=== PATIENT | female | born 1950 | race Caucasian/White ===

== ENCOUNTER 2020-08-28 07:30 | Emergency (ER) | payer MEDICARE, OTHER ==
[~2020-08-28] VITALS: Ht 162.6 cm; Wt 59.0 kg
[2020-08-28 08:14] LABS: BASOPHILS ABSOLUTE AUTO 0.03 K/mm3 (0.00-0.23); BASOPHILS PERCENT AUTO 0 % (0-2); EOSINOPHILS ABSOLUTE AUTO 0.02 K/mm3 (0.00-0.68); EOSINOPHILS PERCENT AUTO 0 % (0-6); Hematocrit 34.1 % (33.0-51.0); Hemoglobin 11.4 g/dL (11.5-16.0); IMMATURE GRAN ABSOLUTE AUTO 0.02 K/mm3 (0.00-0.10); IMMATURE GRAN PERCENT AUTO 0 % (0-1); LYMPHOCYTES PERCENT AUTO 10 % (21-46); MONOCYTES ABSOLUTE AUTO 0.41 K/mm3 (0.16-1.47); MONOCYTES PERCENT AUTO 6 % (4-13); Mean Corpuscular HGB 30.9 pg (26.0-34.0); Mean Corpuscular HGB Conc 33.4 g/dL (31.5-36.5); Mean Corpuscular Volume 92 fL (80-100); Mean Platelet Volume 8.7 fL (9.1-12.4); NEUTROPHILS ABSOLUTE AUTO 6.14 K/mm3 (1.96-9.15); NEUTROPHILS PERCENT AUTO 84 % (41-73); Platelet Count 449 K/mm3 (150-400); RDW Coefficient Variation 13.8 % (11.7-14.2); RDW Standard Deviation 46.9 fL (35.1-46.3); Red Blood Cell Count 3.69 M/mm3 (3.80-5.20); White Blood Cell Count 7.32 K/mm3 (4.00-11.30)
[2020-08-28 08:42] LABS: Alanine Aminotransfer (ALT/SGP 16 U/L (12-78); Albumin, Blood 2.6 g/dL (3.4-5.0); Albumin/Globulin Ratio 0.7 (0.8-1.8); Alk Phos 75 U/L (50-136); Anion Gap 10 mmol/L (6-16); Aspartate Aminotrans (AST/SGOT 14 U/L (12-37); Bilirubin, Total 0.5 mg/dL (0.1-1.0); Blood Urea Nitrogen 10 mg/dL (8-24); Bun/Creatinine Ratio 19.2 (12.0-20.0); CO2, Blood 24 mmol/L (21-32); Calcium, Blood 8.3 mg/dL (8.5-10.1); Chloride, Blood 97 mmol/L (98-108); Creatinine, Blood 0.52 mg/dL (0.40-1.00); Free Thyroxine 1.13 ng/dL (0.70-1.60); Globulin, Blood 3.7 g/dL (2.2-4.0); Glomerular Filtration Rate >60 (60-); Glucose, Blood 96 mg/dL (70-99); Potassium, Blood 3.5 mmol/L (3.5-5.5); Sodium, Blood 131 mmol/L (136-145); Total Protein, Blood 6.3 g/dL (6.4-8.2)
[2020-08-28 12:07] LABS: International Normalized Ratio 1.06; Prothrombin Time Results 11.4 Sec (9.7-11.5)
[2020-08-29 07:10] LABS: HBSAG SCREEN Negative (Negative); HEP B CORE AB, TOT Negative (Negative); HEP C VIRUS AB <0.1 (0.0-0.9)
[2020-08-29 08:10] LABS: HBSAG SCREEN Negative (Negative); HEP A AB, IGM Negative (Negative); HEP B CORE AB, IGM Negative (Negative); HEP C VIRUS AB <0.1 (0.0-0.9)
== END 2020-08-28 11:03 | disposition home or self-care (01) ==
LOC: ER 07:30
PROVIDERS: Emergency Medicine
DX: R18.8 Other ascites (principal)
CPT/HCPCS: 74177; 80053; 80074; 83690; 84439; 84443; 85025; 85610; 85730; 86317; 86704; 86708; 86803; 87340; 99284-25; Q9967

== ENCOUNTER 2021-03-04 09:57 | Emergency (ER) | payer MEDICARE ==
[~2021-03-04] VITALS: Ht 162.6 cm; Wt 61.7 kg
[2021-03-04] MEDS ORDERED: CAPECITABINE150 MG PO (11:28)
[2021-03-04] MEDS ORDERED: METFORMIN HCL500 M2 PO (11:28)
[2021-03-04] MEDS ORDERED: TOBRAMYCIN5 ML BOTHEYES (11:28)
== END 2021-03-04 13:29 | disposition home or self-care (01) ==
LOC: ER 09:57
DX: R18.8 Other ascites (principal); Z87.19 Personal history of other diseases of the digestive system
CPT/HCPCS: 36415; 49083; 99284-25

== ENCOUNTER 2021-03-08 14:32 | Emergency (ER) | payer MEDICARE ==
[~2021-03-08] VITALS: Ht 162.6 cm; Wt 61.2 kg
[~2021-03-08 14:32] MED LIST: CAPECITABINE150 MG PO; METFORMIN HCL500 M2 PO; TOBRAMYCIN5 ML BOTHEYES
--- NOTE | 2021-03-10 18:31 | NUR ---
pt called to discuss pleurex care. pt refused hospice care becasue she thought they would force medications on her. Review of what hospice does and how they can help. pt willing to have them come see her.Will update oncology tomorrow and get her an intake.
== END 2021-03-08 19:26 | disposition home or self-care (01) ==
LOC: ER 14:32
DX: J90 Pleural effusion, not elsewhere classified (principal); Z85.028 Personal history of other malignant neoplasm of stomach
CPT/HCPCS: 71046; 76705; 99285-25

== ENCOUNTER 2021-04-15 06:08 | Day surgery (SDC) | payer MEDICARE ==
[~2021-04-15] VITALS: Ht 162.6 cm; Wt 68.4 kg
[~2021-04-15 06:08] MED LIST changes: +SULFAMETHOXAZO1 EAC1
--- NOTE | 2021-04-15 06:52 | NUR ---
History, Chart, Medications and Allergies reviewed before start of procedure. LS WITH CRACKLES IN THE BASES GREATER ON R SIDE. PT WITH PLEURX CATH DRESSING INTACT TO LUQ ABD. Patient confirms NPO status and agrees with scheduled surgery. Pre-Op teaching done. Pt verbalizes understanding. Patient States Post-Procedure ride home has been arranged. Patient reports completing Chlorhexadine BATH X2 prior to admission to hospital. PT STATES SHE DOESN'T SHOWER BUT BATHS DUE TO THE PLEURX CATH. PT HAS HOSPICE SERVICES AT FOR AFTERCARE.
--- NOTE | 2021-04-15 08:00 | NUR ---
04/15/21 0800 Irene Patterson PLEURX CATHETER PLACED. 3L OF FLUID DRAINED FROM ABDOMEN.
== END 2021-04-15 09:11 | disposition home or self-care (01) ==
LOC: ORSCMMR 06:08 → ORD 07:30 → ORSCMMR 07:30
PROVIDERS: Surgery
PROC: 0WHG33Z Insertion of Infusion Device into Peritoneal Cavity, Percutaneous Approach (ICD-10-PCS; principal; 2021-04-15 07:30)
DX: C48.2 Malignant neoplasm of peritoneum, unspecified (principal); J91.0 Malignant pleural effusion
CPT/HCPCS: C1729; J0690; J1100; J2250; J2405; J2704; J3010; J7120